=== PATIENT | female | born 1970 | race Caucasian/White ===

== ENCOUNTER 2018-08-29 15:30 | Inpatient (IN) ==
[2018-08-29] MEDS ORDERED: Haloperidol Lactate 5 MG/ML VIAL IM PRN (16:34)
[2018-08-29] MEDS ORDERED: MOM Conc 10 ML UD.LIQ PO PRN (16:34)
[2018-08-29] MEDS ORDERED: *HR* LORazepam 2 MG/ML VIAL IM PRN (16:34)
[2018-08-29] MEDS ORDERED: *HR* LORazepam 1 MG TABLET PO PRN (16:34)
[2018-08-29] MEDS ORDERED: Acetaminophen 325 MG TABLET PO PRN (16:34)
[2018-08-29] MEDS ORDERED: Mag Hydrox/Al Hydrox/Simeth 30 ML UDC PO PRN (16:34)
[2018-08-29] MEDS: Nicotine 21 MG PATCH.TD24 TD SCH (19:04)
[2018-08-29] MEDS: hydrOXYzine pamoate 25 MG CAPSULE PO PRN (21:07)
[2018-08-29] MEDS: Gabapentin 300 MG CAPSULE PO SCH (21:07)
--- NOTE | 2018-08-30 09:29 | Psychiatry History & Physical ---
Date of Encounter: 08/30/18 Time of Encounter: 08:48 History of Present Illness Patient Stated Chief Complaint: "I tried to kill myself because my girlfriend broke up with me" Medicare Admission Attestation: For traditional Medicare patients the provided hospital inpatient services are reasonable and necessary and in the case of services not specified as inpatient-only under 42 CFR 419.22 (n), that they are appropriately provided as inpatient services in accordance 42 CFR 412.3. For Critical Access Hospital the patient may reasonably be expected to be discharged or transferred to a hospital within 96 hours after admission to the Critical Access Hospital. Admitted From: Intrahospital Transfer Plans for Post Hospital Care: Home History of Present Illness: Ms. Vicente is a 48 year old female with past medical history of hypertension, diabetes, hyperlipidemia, anxiety/depression who presented to the emergency department with complaint of overdose. Patient states that she consumed approximately 200 pills of 324 mg aspirin. When asked why, patient states that if this was an intentional suicide attempt. She notably does have a recent hospital admission in [place] for the same complaint and prognosis approximately 3 weeks ago. Patient states she was admitted to the intensive care unit at that hospital and did require 2 sessions of dialysis for again overdosing on aspirin. Patient states that the nature of her suicide attempt was secondary to "things adding up". She does have a history of anxiety and depression for which she does not receive treatment. She states that she normally has good control of these, however they are thin multiple stressors in her life including fighting with a girlfriend. Patient states that she is not experiencing any symptoms of fevers, chills, chest pain, palpitations, shortness of breath, nausea, vomiting, numbness, tingling. She does admit to some ringing in her ears. She is denying any urinary symptoms and has noticed no bleeding. Upon arrival to emergency room, vital signs were significant for heart rate of 108, respiratory rate 20, blood pressure 155/108 and she was tolerating 99% on room air. Laboratory results were significant for WBC count 11.3, potassium 4.0, bicarbonate 27, BUN/creatinine of 22/0.81. Anion gap presented to 10. Aspirin levels were drawn initially were 18.1 which were trended 48.1 and 61.7. urine drug screen was also positive for opioids. VBG was obtained and showed pH 7.45/32/117/23. poison control was contacted and recommended activated charcoal, sodium bicarbonate drip after pushes. She was started on bicarb drip and followed by nephrology. She did not need dialysis. Her levels gradually improved and she was transferred from ICU. She was seen by psychiatry and recommended admission once medically cleared. She still remains depressed and anxious. She is hopeless but not actively suicidal today. No HI but is angry with ex-girlfriend. Poor sleep and decreased interests Client denies any history of mental health treatment beyond therapy in her 20s. Has taken Zoloft from her PCP in the past but not recently taking. Past Med Surg Social Fam HX - Past Medical History Medical history: diabetes, hypertension, thyroid disease - Past Psychiatric History Psychiatric history: Reports: anxiety, depression Family psychiatric history: Yes Family History of Suicide: None - Past Surgical History Surgical History: cholecystectomy, hysterectomy - Social History Smoking Status: Current every day smoker Smokeless Tobacco Status: No Alcohol use: rarely Drug use: none - Family History Mother Adopted: [place]: Ivonne Age: 75 Living Status: Still Living Hx Family Cardiac Disorders: No Hx Family Respiratory Disorders: No Hx Family Cancer: No Hx Family GI Disorders: No Hx Family Genitourinary Disorders: No Hx Family Endocrine Disorder: No Hx Family Musculoskeletal Disorders: No Hx Family Neuromuscular Disorders: No Hx Family Neurologic Disorders: No Hx Family HEENT Disorders: No Hx Family Autoimmune Disorders: No Hx Family Reproductive Disorders: No Hx Family Psychosocial Disorders: No Hx Family Medical Disorders: No Medications & Allergies Gabapentin [Neurontin] 300 mg PO TID 08/27/18 [History] Hydrocodone/Acetaminophen [[place] 7.5-325 Tablet] 1 tab PO BID PRN 08/27/18 [History] Levothyroxine [Synthroid] 75 mcg PO DAILY 08/27/18 [History] Omeprazole [PriLOSEC] 20 mg PO DAILY 08/27/18 [History] Acetaminophen [Tylenol] 650 mg PO Q6HR PRN tablet 08/29/18 [Rx] Nicotine Patch [Nicoderm] 21 mg TD Q24H patch.td24 08/29/18 [Rx] Sertraline [Zoloft] 25 mg PO DAILY tablet 08/29/18 [Rx] Allergy/AdvReac Type Severity Reaction Status Date / Time hydromorphone [From Dilaudid] Allergy See Verified 08/27/18 02:09 Comments Review of Systems Constitutional: Denies: fever, chills, weakness, weight change Ears, Nose, Throat: Denies: ear pain, throat pain, dental pain, hearing loss, congestion Respiratory: Denies: cough, dyspnea, wheezes Musculoskeletal: Reports: back pain Neurological: Denies: headache, weakness, numbness, memory loss Psychiatric: Reports: depression, anxiety, abnormal sleep pattern, change in appetite, anhedonia, hopelessness Endocrine: Reports: fatigue Exam - HEENT Head exam IM: Present: atraumatic - Respiratory Respiratory exam IM: Present: CTAB - Constitutional Vitals: Temp Pulse Resp BP Pulse Ox 98.2 F 90 16 144/106 98 08/29/18 21:00 08/29/18 21:00 08/29/18 21:00 08/29/18 21:00 08/29/18 21:00 General appearance: age & developmentally appropriate, well-groomed, well- nourished - Musculoskeletal Gait: normal Station: relaxed Strength & Tone: normal for patient - Psychiatric Patient Orientation: Yes Person, Yes Time, Yes Place Level of alertness: Alert Behavior: anxious, tearful Psychomotor activity: Increased Eye Contact: Maintains Eye Contact Mood Description: Depressed, Anxious Patient description of mood: upset with myself Affect description: blunted Speech Volume: Normal Speech pattern: normal rate Language & Vocabulary: consistent with education Thought Process: Intact Thought Content: Yes Intact Perceptual Disturbances: No Auditory hallucinations, No Visual hallucinations Attention Span Ability: Unable to Focus Memory Description: Grossly Intact Patient Reliability: Reliable Historian Fund of knowledge: Yes abstraction ability Intelligence Estimate: Average Judgment: Fair Insight: Partial Assessment and Plan (1) Depression, major, recurrent Current visit: Yes Status: Acute Plan: Admit inpatient for safety and stabilization, Close observation, Suicide Precautions per unit protocol, Encourage participation in unit milieu, Group Therapy, Monitor sleep, Monitor appetite Risks, benefits, side effects, alternatives discussed w/pt: Yes (increase zoloft 50mg qam depression) Patient agreeable to treatment: No Plans for Post Hospital Care: Home Estimated Length of Stay (Days): 5 Qualifiers: Active/Remission status: currently active Major depression episode severity: severe Psychotic features: without psychotic features Qualified Code(s): F33.2 - Major depressive disorder, recurrent severe without psychotic features (2) Suicide attempt by substance overdose Current visit: Yes Status: Acute Plan: Admit inpatient for safety and stabilization, Close observation, Suicide Precautions per unit protocol, Encourage participation in unit milieu, Group Therapy, Monitor sleep, Monitor appetite Additional Plan: increase zoloft to 50mg for depression increase gabapentin to 600mg tid fo pain and anxiety Risks, benefits, side effects, alternatives discussed w/pt: Yes Patient agreeable to treatment: Yes Plans for Post Hospital Care: Home Estimated Length of Stay (Days): 5
[2018-08-30] MEDS: Gabapentin 300 MG CAPSULE PO SCH ×3 (09:53→21:22)
[2018-08-30] MEDS: Nicotine 21 MG PATCH.TD24 TD SCH (15:55)
[2018-08-30] MEDS: hydrOXYzine pamoate 25 MG CAPSULE PO PRN (21:23)
[2018-08-30] MEDS: traZODone 50 MG TABLET PO PRN (23:08)
[2018-08-31] MEDS: Gabapentin 300 MG CAPSULE PO SCH ×3 (09:12→20:15)
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
[2018-08-31] MEDS: Nicotine 21 MG PATCH.TD24 TD SCH (14:28)
[2018-08-31] MEDS: *HR* HYDROcodone/Acet 7.5/325 mg TABLET PO PRN (15:56)
[2018-08-31] MEDS: hydrOXYzine pamoate 25 MG CAPSULE PO PRN (20:15)
[2018-08-31] MEDS: traZODone 50 MG TABLET PO PRN (23:44)
[2018-09-01] MEDS: Gabapentin 300 MG CAPSULE PO SCH ×3 (09:53→20:47)
[2018-09-01] MEDS: Nicotine 21 MG PATCH.TD24 TD SCH (09:54)
[2018-09-01] MEDS: *HR* HYDROcodone/Acet 7.5/325 mg TABLET PO PRN ×2 (09:57→17:49)
--- NOTE | 2018-09-01 10:27 | Psychiatry Progress Note ---
Date of Encounter: 09/01/18 Time of Encounter: 10:25 Subjective Interval history: Patient continues to report depressed mood with some passive suicidal thoughts she says that she feels if she were home she might be tempted to spanish moss picker the phone and call her ex which may lead her to another overdose. She reports sadness feelings of hopelessness and guilt decreased interests and poor concentration. She reports ruminating anxiety thoughts particularly at night. She is tolerating the Zoloft. I will consider further increase. She denies psychotic symptoms. Review of Systems Psychiatric: Reports: depression, anxiety, abnormal sleep pattern, suicidal ideation, change in appetite, anhedonia, hopelessness Results - Vital Signs Vital Signs: Temp Pulse Resp BP Pulse Ox 96.7 F L 91 18 137/93 98 09/01/18 09:00 09/01/18 09:00 09/01/18 09:00 09/01/18 09:00 09/01/18 09:00 Assessment and Plan (1) Depression, major, recurrent Current visit: Yes Status: Acute Additional Plan: Into the Zoloft. I will consider increase the dose. We did discuss that she has Vistaril as needed that she continues for the anxiety. Risks, benefits, side effects, alternatives discussed w/pt: Yes (increase zoloft 50mg qam depression) Patient agreeable to treatment: No Qualifiers: Active/Remission status: currently active Major depression episode severity: severe Psychotic features: without psychotic features Qualified Code(s): F33.2 - Major depressive disorder, recurrent severe without psychotic features (2) Suicide attempt by substance overdose Current visit: Yes Status: Acute Additional Plan: Patient has been back on regular foods and has had no further problems taking silverware. Risks, benefits, side effects, alternatives discussed w/pt: Yes Patient agree able to treatment: Yes Qualifiers: Encounter type: initial encounter Consult Discharge Plan - Plan Referrals: NONE,PCP [Primary Care Provider] - Psychiatry Exam - Constitutional Vitals: Temp Pulse Resp BP Pulse Ox 96.7 F L 91 18 137/93 98 09/01/18 09:00 09/01/18 09:00 09/01/18 09:00 09/01/18 09:00 09/01/18 09:00 General appearance: disheveled - Musculoskeletal Gait: normal Station: stiff Strength & Tone: normal for patient - Psychiatric Patient Orientation: Yes Person, Yes Time, Yes Place Level of alertness: Alert Behavior: calm Psychomotor activity: Normal Eye Contact: Maintains Eye Contact Mood Description: Depressed Patient description of mood: Depressed Affect description: blunted Speech Volume: Normal Speech pattern: normal rate Language & Vocabulary: consistent with education Thought Process: Intact Thought Content: Yes Suicidal ideation Perceptual Disturbances: No Auditory hallucinations, No Visual hallucinations Attention Span Ability: Capable of Focused Attention Memory Description: Grossly Intact Patient Reliability: Reliable Historian Fund of knowledge: Yes abstraction ability, Yes aware of current events Intelligence Estimate: Average Judgment: Fair Insight: Partial
[2018-09-01] MEDS: traZODone 50 MG TABLET PO PRN (23:36)
[2018-09-02] MEDS: Gabapentin 300 MG CAPSULE PO SCH ×2 (08:22→14:14)
[2018-09-02] MEDS: *HR* HYDROcodone/Acet 7.5/325 mg TABLET PO PRN ×2 (08:22→14:14)
[2018-09-02] MEDS: Nicotine 21 MG PATCH.TD24 TD SCH (08:24)
[2018-09-02 09:44] VITALS: BP 122/83
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
== END 2018-09-02 17:27 | disposition home or self-care (01) | DRG 885 ==
LOC: 1ANU 15:30 → SUATTDRO 15:30
PROVIDERS: ADMIT Psychiatry & Neurology Psychiatry; ATTEND Psychiatry & Neurology Psychiatry